=== PATIENT | male | born 1970 | race Caucasian/White ===

== ENCOUNTER 2024-11-10 13:26 | Emergency (ER) | payer MEDICAID, SELFPAY ==
[2024-11-10 13:27] VITALS: BMI 31.2
--- NOTE | 2024-11-10 13:46 | XR_ITS ---
Examination: CT abdomen and pelvis without contrast. Coronal 3-D reconstructions. Sagittal 2-D reconstructions. Date and time of exam:November 10, 2024, 1450 hours, compared to October 17, 2022 INDICATIONS: Right-sided flank pain radiating to the back beginning 2 days ago CTDI: vol (mGy): 10.8 DLP: (mGycm): 756 Technique: Axial images of the abdomen have been obtained, 3 mm slice thickness Intravenous contrast material has not been administered. Low dose protocols were performed. One or more of the following dose reduction techniques were used; automated exposure control, adjustment of the mA and/or KV according to patient size, use of iterative reconstruction technique. Findings: Diffuse fatty infiltration throughout the liver No focal liver or splenic lesions No gallstones No pancreatic or adrenal mass 2 mm upper pole nonobstructing right renal calculus No hydronephrosis or ureteral calculi Normal appendix No bowel obstruction Acute diverticulitis sigmoid colon axial image 188, no peridiverticular abscess Contracted urinary bladder no bladder mass Mild prostatomegaly IMPRESSION: 2 mm upper pole nonobstructing right renal calculus Acute diverticulitis sigmoid colon, no diverticular abscess
--- NOTE | 2024-11-10 13:47 | PD.EDRME ---
Rapid Medical Screening Exam RME Arrival date/time: 11/10/24 13:26 54-year-old male with a history of hypertension presents to the emergency room with a chief complaint of right-sided flank pain and right lower quadrant abdominal pain, nausea, vomiting x 2 days I have greeted and performed a focused initial assessment of this patient. A comprehensive ED assessment and evaluation of the patient, analysis of all test results, and completion of the medical decision making process will be conducted by additional ED providers. Chief Complaint: Abdominal Pain Time Seen by Provider: 11/10/24 13:33 Vital signs reviewed by provider: Yes
[2024-11-10] MEDS: ONDANSETRON ODT 4 MG TABRAP PO (13:55)
[2024-11-10] MEDS: KETOROLAC INJ 60 MG/2 ML VIAL 30 MG IM (13:56)
[2024-11-10 13:57] VITALS: BP 155/108; PULSE 82; RESP 20; TEMP 37.2; O2SAT 97
[2024-11-10 14:36] LABS: Basophils # (Auto) 0.1 Thou/mm3 (0.0-0.2); Basophils % (Auto) 1 % (0-2.5); Eosinophils # (Auto) 0.1 Thou/mm3 (0.0-0.5); Eosinophils % (Auto) 1 % (0-10); Hematocrit 55.9 % (41.0-53.0); Hemoglobin 19.2 g/dL (13.5-16.0); Immature Granulocytes Auto 0.04 Thou/mm3 (0.00-0.00); Lymphocytes # (Auto) 2.2 Thou/mm3 (1.0-4.8); Lymphocytes % (Auto) 19 % (10-50); Mean Corpuscular HGB Conc 34.3 g/dl (31.0-37.0); Mean Corpuscular Hemoglobin 30.3 pg (25.0-35.0); Mean Corpuscular Volume 88 fL (80-100); Monocytes # (Auto) 0.8 Thou/mm3 (0.0-0.8); Monocytes % (Auto) 7 % (0-12); Neutrophils # (Auto) 8.2 Thou/mm3 (1.8-7.7); Neutrophils % (Auto) 72 % (37-80); Nucleated Red Blood Cell # 0.00 Thou/mm3 (0.00-0.00); Nucleated Red Blood Cell % 0 /100 WBC (0); Platelet Count 217 Thou/mm3 (140-440); RDW Standard Deviation 41.8 fL (35.1-43.9); Red Blood Count 6.33 Miln/mm3 (4.50-5.90); White Blood Count 11.4 Thou/mm3 (3.8-10.6)
[2024-11-10 14:50] LABS: Alanine Aminotransferase 23 U/L (10-49); Albumin, Serum 4.5 gm/dL (3.5-5.0); Albumin/Globulin Ratio 1.7 (1.2-2.2); Alkaline Phosphatase 88 U/L (46-116); Anion Gap 7 (7-16); Aspartate Amino Transferase 16 U/L (0-34); BUN/Creatinine Ratio 5 Ratio (12-20); Bilirubin,Total 0.5 mg/dL (0.3-1.2); Blood Urea Nitrogen 7 mg/dL (9-23); Calcium 9.9 mg/dL (8.3-10.6); Calcium (Corrected) 9.9 mg/dL (8.5-10.1); Carbon Dioxide 26.9 mMol/L (20.0-31.0); Chloride 104 mMol/L (98-107); Creatinine (Component) 1.4 mg/dL (0.6-1.3); Estimated Creatinine Clearance 83.9 mL/min (>60); Globulin 2.6 gm/dL (2.3-3.5); Glucose 89 mg/dL (74-106); Osmolality,Calculated 272 (275-295); Potassium 4.7 mMol/L (3.4-5.1); Sodium 138 mMol/L (136-145); Total Protein 7.1 gm/dL (5.7-8.2); eGFR > 60 See Note
[2024-11-10 15:23] LABS: Collection Type, Urine Clean Catch
[2024-11-10 15:32] LABS: Bilirubin,Urine Negative (Negative); Blood,Urine Negative (Negative); Clarity,Urine Clear (Clear/Hazy); Color,Urine Yellow (Lt Yel-Yel); Glucose, Urine Negative (Negative); Ketones,Urine Negative (Negative); Leukocyte Esterase,Urine Negative (Negative); Nitrite,Urine Negative (Negative); PH,Urine 6.0 (5.0-7.0); Protein,Urine Negative (Neg - Trace); RBC,Urine 2 /hpf (0-3); Specific Gravity,Urine 1.024 (1.001-1.035); Squamous Epithelial Cell,Urine < 1 /hpf (0-5); Urobilinogen,Urine Negative mg/dL (0.0-1.0); WBC,Urine 2 /hpf (0-5)
[2024-11-10 16:17] VITALS: BP 154/102; PULSE 81; RESP 18; TEMP 37.1; O2SAT 98
--- NOTE | 2024-11-10 16:23 | EDNOTE_ITS ---
ED Abdominal Pain RME/HPI General Chief Complaint: Abdominal Pain Stated complaint: LOWER RIGHT ABD PAIN RADIATING TO BACK Time seen by provider: 11/10/24 13:33 Arrival date/time: 11/10/24 13:26 RME / HPI RME / HPI narrative: 54-year-old male with a history of hypertension presents to the emergency room with a chief complaint of right-sided flank pain and right lower quadrant abdominal pain, nausea x 2 days. Patient denies any fever denies any vomiting denies any diarrhea or constipation denies any hematuria or frequency. Denies any dysuria. No medication was taken prior to arrival. Related Data Previous Rx's ?Medication ?Instructions ?Recorded lisinopril 20 mg tablet 20 mg PO QDAY #30 tabs 10/18 ciprofloxacin HCl 500 mg tablet 500 mg PO BID #14 tabs 11/10/24 ibuprofen 800 mg tablet 800 mg PO Q8H PRN pain #30 t abs 11/10/24 metronidazole 500 mg tablet 500 mg PO BID 7 days #14 t abs 11/10/24 sennosides 8.6 mg-docusate sodium 1 tab-cap PO QDAY #1 0 tabs 11/10/24 50 mg tablet (Colace 2-In-1) Allergies Allergy/AdvReac Type Severity Reaction Status Date / Time codeine Allergy Severe DIFF Verified 11/10/24 13:27 BREATHING venom-honey bee Allergy Severe rash Verified 11/10/24 13:27 Review of Systems Review of Systems Narrative Review of Systems: Review of system reviewed and within normal limits except mentioned in HPI ED Exam Narrative Physical exam: VITAL SIGNS: Reviewed. GENERAL APPEARANCE: Alert and interactive, follows commands, no acute distress, HEAD AND FACE: Non-traumatic. ENT: PERRL, pink conjunctivitis, eyelid no trauma, Mucous membrane moist. NECK: Supple, nontender, no nuchal rigidity. CHEST: No tenderness, no crepitus, no paradoxical movement, no retractions. LUNGS: Clear, well ventilated, symmetric, no rales, no wheezing, no ronchi, no stridor, good breath sounds bilaterally. HEART: Regular rate, regular rhythm, no murmur, no gallops. ABDOMEN: Soft, positive bowel sounds, nondistended, no guarding, right lower quadrant tenderness, no rebound, no masses, RECTAL: Deferred. GENITAL: Deferred. NEUROLOGICAL: Gross motor function intact sensory function intact, Appropriate for age. MUSCULOSKELETAL: low back nontender, full range of motion. EXTREMITIES: Nontender, full range of motion. SKIN: Color pink, dry, no rash, no lacerations, no abrasions, no contusions. LYMPHATICS: Deferred. Course Quality Measures none Orders Category Date Time Status CT abdomen pelvis wo con Stat Exams 11/10/24 13:46 Completed CBC Stat Lab 11/10/24 14:08 Completed CMP [Comprehensive Metabolic Panel] Stat Lab 11/10/24 14:08 Completed UA [Urinalysis] Stat Lab 11/10/24 15:07 Completed Urine Culture Stat Lab 11/10/24 15:07 Received Ciprofloxacin HCl [Ciprofloxacin] Med 11/10/24 16:22 Once 500 mg PO X1 ONE Ketorolac Inj [Toradol Inj] Med 11/10/24 13:46 Discontinued 30 mg IM X1 ONE Ondansetron Odt [Zofran Odt] Med 11/10/24 13:46 Discontinued 4 mg PO X1 ONE metroNIDAZOLE [Flagyl] Med 11/10/24 16:22 Once 500 mg PO X1 ONE Vital Signs Vital signs: Vital Signs Temperature 98.9 F 11/10/24 13:57 Pulse Rate 82 11/10/24 13:57 Respiratory Rate 20 11/10/24 13:57 Blood Pressure 155/108 H 11/10/24 13:57 Pulse Oximetry (%) 97 11/10/24 13:57 Oxygen Delivery Method Room Air 11/10/24 13:57 Abdominal Pain MDM MDM Narrative MDM Narrative:: 54-year-old male with a history of hypertension presents to the emergency room with a chief complaint of right-sided flank pain and right lower quadrant abdominal pain, nausea x 2 days. Patient denies any fever denies any vomiting denies any diarrhea or constipation denies any hematuria or frequency. Denies any dysuria. No medication was taken prior to arrival. Laboratory workup all came back unremarkable. CT scan of the abdomen pelvis came back with acute sigmoid diverticulitis no abscess noted no perforation noted. Results discussed with the patient. Patient was given Flagyl Cipro and Toradol IM with significant proving of pain will be sent home on Flagyl Cipro Colace and Motrin Patient appears nontoxic and hemodynamically stable .Decision to discharge the patient. The patient/family was given an opportunity to ask questions and understood their discharge instructions. Discharge instructions specifically included follow up provider and time frame, current and/or new medications and possible side effects, indications for sooner follow up or return to the emergency department, and the expected course of current diagnosis. Patient reports feeling better as well and giving evidence of significant clinical improvement, I believe patient is now a candidate for discharge. Patient data External records reviewed:: None Clinical information provided by:: patient Social determinants that could affect healthcare access:: none Patient has the following chronic illnesses:: None How is presenting disease/condition affected by chronic disease/condition?: no chronic disease Evaluation data The following diagnostics were reviewed and interpreted by me:: lab results and radiology exam(s) Lab and/or radiology exams considered but not ordered:: None Interpretation Summary: See results MDM Medications / Prescriptions Medications or Prescriptions considered but not ordered:: Cipro, Flagyl, Colace, Motrin Medication administrations:: Medication Administration History Ciprofloxacin (Ciprofloxacin Hcl 250 Mg Tablet) 500 mg PO X1 ONE Stop: 11/10/24 16:23 Metronidazole (Metronidazole 250 Mg Tablet) 500 mg PO X1 ONE Stop: 11/10/24 16:23 Discontinued Medications Ketorolac Tromethamine (Ketorolac Inj 60 Mg/2 Ml Vial) 30 mg IM X1 ONE Stop: 11/10/24 13:47 Last Admin: 11/10/24 13:56 Dose: 30 mg Documented By: Ondansetron HCl (Ondansetron Odt 4 Mg Tabrap) 4 mg PO X1 ONE; Protocol Stop: 11/10/24 13:47 Last Admin: 11/10/24 13:55 Dose: 4 mg Documented By: Zofran, Toradol, Cipro, Flagyl Consultations Consultation(s) initiated? (list below): No Diagnosis Differential diagnosis abdominal pain: abdominal pain and constipation Most likely diagnosis given after review of the tests above:: Acute diverticulitis Admission Indicated Admission indicated?: not indicated Admission Request Was there a request for admission?: No Disposition Plan Disposition Plan: Discharge Discharge Attestation Discharge Attestation: The patient and all family members were given an opportunity to ask questions and understood the discharge instructions. Discharge instructions specifically effects, indications for sooner follow up or return to the emergency department, and the expected course of current diagnosis. Patient condition: Stable Discharge Plan Plan Patient Disposition: HOME (Self Care) Discharge Disposition comment: Stable Prescriptions/Referrals Prescriptions/Med Rec: New metronidazole 500 mg tablet 500 mg PO BID 7 Days Qty: 14 0RF ibuprofen 800 mg tablet 800 mg PO Q8H PRN (Reason: pain) Qty: 30 0RF sennosides-docusate sodium [Colace 2-In-1] 8.6-50 mg tablet 1 tab-cap PO QDAY Qty: 10 0RF ciprofloxacin HCl 500 mg tablet 500 mg PO BID Qty: 14 0RF No Action lisinopril 20 mg tablet 20 mg PO QDAY Qty: 30 1RF Referrals: No Primary/Family,Physician [Primary Care Provider] - In 1 week Problem List Clinical Impression: Acute diverticulitis Patient/Caregiver Discharge Instructions Discharge Activity: activity as tolerated Education Materials: ED Diverticulitis Additional Instructions: Thank you for the opportunity for serving you today. You are stable for discharged . You are advised to: Follow-up with your PCP in 1 to 2 days Return to ED for worsening of symptoms Increase oral fluids Take medication as prescribed Liquid diet for 2 days advance as tolerated Print Language: [place] Stand Alone Forms: Radha Award Info., Patient Portal Info Letter PA/[employer]ENT[employer] TE[employer]Y TE[employer]ER Supervising Physician STEVENSON/[employer]ORY TECHN[employer]Y TEACHER Supervising Physician: MD Darwin
[2024-11-10] MEDS: CIPROFLOXACIN HCL 250 MG TABLET 500 MG PO (16:33)
== END 2024-11-10 16:38 | disposition home or self-care (01) ==
PROVIDERS: Nurse Practitioner Family; Emergency Provider Family Medicine
DX: K57.32 Diverticulitis of large intestine without perforation or abscess without bleeding (principal)
CPT/HCPCS: 36415; 74176; 80053; 81001; 85025; 87086; 99284; J1885; Q0162; A9270